=== PATIENT | male | born 1965 | race Caucasian/White ===

== ENCOUNTER 2018-02-21 07:22 | Day surgery (SDC) | payer OTHER ==
[~2018-02-21] VITALS: Ht 167.6 cm; Wt 88.5 kg
[~2018-02-21 07:22] MED LIST: CLOBETASOL EMOL15 GM TOP; DOXYCYCLINE HY100 MG PO; FENOFIBRATE160 MG PO; INVOKANA100 MG PO; JARDIANCE10 MG PO; LISINOPRIL20 MG PO; METFORMIN HCL1000 M1 PO; PRAVACHOL40 MG PO
[2018-02-21] MEDS ORDERED: ADULT ASPIRIN R81 MG PO (07:40)
[2018-02-21] MEDS ORDERED: FISH OIL 1,0001 EAC5 PO (07:40)
--- NOTE | 2018-02-21 08:47 | NUR ---
02/21/18 0847 Radha Rene 0832-PATIENT ARRIVED TO PACU ON 3L NC O2 SAT 97% AWAKE DROWSY. ABDOMEN SOFT. GLUCOSE 123 0847-PATIENT WEANED TO RA O2 SAT 96% ENCOURAGED TO PASS FLATUS.
--- NOTE | 2018-02-21 19:37 | OR ---
[facility] [address], [place] [address] Signed DATE OF OPERATION: 02/21/2018 SURGEON: Peter Garsia MD PREOPERATIVE DIAGNOSIS: Colon screening. POSTOPERATIVE DIAGNOSIS: Normal colon to cecum. PROCEDURE: Total colonoscopy to cecum. ANESTHESIA: Intravenous sedation with fentanyl 125 mcg, Versed 5 mg. INDICATION: This 52-year-old white man is a patient of Dr. Corral and is in good health with good monitoring and management of his diabetes and other issues including hypertension. He is referred for screening colonoscopy. He has no symptoms of bleeding, diarrhea, or constipation, and no family history of colon cancer that he is aware of. He is admitted to undergo screening colonoscopy based on his age of 52 years, understanding the risks of bleeding, infection, and perforation. FINDINGS: The prep was good. Complete colonoscopy was undertaken to the cecum without question. There was no sign of polyps, diverticular formation, colitis, or cancer. PROCEDURE: The patient was brought to the endoscopy suite and placed in the lateral decubitus position, given intravenous sedation to the point of slurred speech and nystagmus. Digital rectal examination was normal. An Olympus video colonoscope was passed in the rectum and manipulated throughout the colon, ultimately intubating the cecum itself. The ileocecal valve appeared normal as did the appendiceal orifice. Irrigation was undertaken in the cecum a bit. Once cleared, the scope was then carefully withdrawn and examination throughout showed no sign of abnormality, specifically no bleeding points, diverticular formation, colitis, or cancer. There were no polyps. Retroflexed view in the rectum was normal. Scope was removed and the patient was taken to recovery room in good condition. Electronically Signed By: PETER GARSIA MD 02/21/18 1937 PATIENT NAME: MARCLEINA OAKLEY OPERATIVE REPORT DATE OF : 69 REPORT #: [id number] PHYSICIAN: PETER GARSIA MD PCP: CLIFF CORRAL DO REPORT IS CONFIDENTIAL AND NOT TO BE RELEASED WITHOUT AUTHORIZATION [facility] [address] [place] [address] [place], [place] [address] Signed CONCLUDING DIAGNOSIS: Normal colon to cecum. PLAN: Repeat colonoscopy in 10 years, sooner if clinically indicated. He will return to the ongoing care of Dr. Corral. MD BENNIE Quintana/PALOMAL /[id number] cc: Cliff Corral DO Copies: CLIFF CORRAL DO ~ Electronically Signed By: PETER GARSIA MD 02/21/18 1937 PATIENT NAME: MARCELINA OAKLEY OPERATIVE REPORT DATE OF : 69 REPORT #: [id number] PHYSICIAN: PETER GARSIA MD PCP: CLIFF CORRAL DO REPORT IS CONFIDENTIAL AND NOT TO BE RELEASED WITHOUT AUTHORIZATION
== END 2018-02-21 10:08 | disposition home or self-care (01) ==
LOC: DS 07:22 → OPS 07:22 → DS 08:30 → OPS 10:08
PROVIDERS: Surgery
PROC: 0DJD8ZZ Inspection of Lower Intestinal Tract, Via Natural or Artificial Opening Endoscopic (ICD-10-PCS; principal; 2018-02-21 08:30)
DX: Z12.11 Encounter for screening for malignant neoplasm of colon (principal); E11.9 Type 2 diabetes mellitus without complications; I10 Essential (primary) hypertension
CPT/HCPCS: 99153; G0500; J2250; J3010; J7120